=== PATIENT | male | born 1960 | race Two or more races ===

== ENCOUNTER 2022-08-14 16:23 | Inpatient (IN) | payer MEDICARE ==
[~2022-08-14] VITALS: Ht 172.7 cm; Wt 62.1 kg
[2022-08-14] MEDS ORDERED: RISP1TAB7 PO (23:24)
[2022-08-14] MEDS ORDERED: ACETAMINOPHEN 325 MG TABLET PO PRN (23:30)
[2022-08-14] MEDS ORDERED: MAG HYDROX/AL HYDROX/SIMETH 30 ML UDC PO PRN (23:30)
[2022-08-14] MEDS ORDERED: MAGNESIUM HYDROXIDE 30 ML UDC PO PRN (23:30)
[2022-08-15] MEDS ORDERED: BLOOD SUGAR DIAGNOSTIC 1 EACH STRIP IN ONE
[2022-08-15 00:50] VITALS: BP 110/63
--- NOTE | 2022-08-15 01:21 | NUR ---
RN NOTES : ADMISSION NOTES: ADMITTED THIS 71Y/O MALE PATIENT DIRECT ADMIT FROM [facility] . ADMITTED TO 5250 HOLD PER HOLD DTS, GD , PT. DISORGNIZED,PARNOID,INCOHERENT DELUSIONAL, UPON FACE TO FACE ASSESSMENT PATIENT IS A&O2 ,EASILY AGITATED ,DISORGNIZED, DISHELVED,POOR HYGINE,MALORDURS UNCOOPERTIVE,POOR DECISION MAKING,DENIES SI /HI AT THIS TIME, PT. IS POOR HISTORIAN, POOR INSIGHT ,POOR JUDGEMENT , BOTH MD AWARE AND NOTIFIED OF THE ADMISSION, BELONGINGS CONTRABAND WERE DONE , PT. REFUSED SIGNS ADMISSION CONSENT PAPER DUE TO TIRED, DISORGNIZED, PT. RIGHTS DISCUSS BY INTERPRETATIVE DANCER , PROVIDE THE PT. WITH HANDBOOK, AND MEDICATIONS GUIDE, ENVIRONMENTAL SAFETY CHECK DONE, ENCOURAGED PT. VERBALIZED ANY FEELING CONCERN TO STAFF, ORIENT TO UNIT POLICY, NO ACUTE DISTRESS NOTED,VITAL SIGNS WNL ,DENIES ANY PAIN AT THIS TIME,WILL CONTINUE TO MONITOR FOR Q15 SAFETY AND BEHAVIOR.
--- NOTE | 2022-08-15 06:30 | NUR ---
RN NOTES: CALLED NOTIFED DAVID MARIE # [phone], REGARDING ABOUT PT. ADMITTED TO [facility] PER PT. CAREGIVER DAVID MARIE PT. HAS HYPERTENSION , DM , PER PT. CAREGIVER WHEN HE FIND HIS LIST OF MEDS HE WILL CALL BACK AND PROVIDE LIST OF MEDICATION ENDORSE TO ON COMING NURSE .WILL CONTINUTY WITH CARE.
[2022-08-15 07:06] LABS: BASOPHILS % (AUTO) 0.7 % (0.0-2.0); EOSINOPHILS % (AUTO) 0.6 % (0.0-6.0); HEMATOCRIT 29 % (39-51); HEMOGLOBIN 9.5 g/dL (13.5-17.5); LYMPHOCYTES # (AUTO) 2.2 K/uL (0.8-4.8); LYMPHOCYTES % (AUTO) 35.4 % (20.0-44.0); MEAN CORPUSCULAR HGB CONC 33 g/dl (31.0-36.0); MEAN CORPUSCULAR VOLUME 94 fL (80-96); MONOCYTES # (AUTO) 0.5 K/uL (0.1-1.30); NEUTROPHILS # (AUTO) 3.4 K/uL (1.8-8.9); NEUTROPHILS % (AUTO) 55.3 % (43.0-81.0); PLATELET COUNT (AUTO) 320 K/uL (150-450); RED BLOOD CELL COUNT(AUTO) 3.09 MIL/uL (4.5-6.0); WHITE BLOOD COUNT (AUTO) 6.2 K/uL (4.3-11.0)
[2022-08-15 07:32] LABS: CALCIUM, SERUM 8.6 mg/dL (8.5-10.1); CREATININE 0.7 mg/dL (0.6-1.3); POTASSIUM 4.4 mmol/L (3.5-5.1)
[2022-08-15 08:00] VITALS: BP 110/67
[2022-08-15] MEDS: NICOTINE PATCH (21MG) 21 MG PATCH.TD24 TD SCH (08:47)
[2022-08-15 16:00] VITALS: BP 112/68
[2022-08-15] MEDS: risperiDONE 1 MG TABLET PO SCH (16:28)
--- NOTE | 2022-08-15 19:30 | NUR ---
GPS RN NOTE, RECEIVED PATIENT AWAKE AND IN BED, NO S/S OR COMPLAINTS OF PAIN AT THIS TIME. PATIENT IS DISPLAYING NO S/S OF APPARENT DISTRESS AT THIS TIME. PATIENT BREATHING IS UNLABORED WITH EQUAL RISE AND FALL OF THE CHEST. PATIENT IS ALERT AND ORIENTED X 3 ON ROOM AIR WITH A SPO2 97%. PATIENT IS COMPLIANT WITH MEDICATIONS, ANXIOUS, PARANOID, FOCUSED ON DISCHARGE, HYPERVERBAL, AND COOPERATIVE. PATIENT DENIES SUICIDAL AND HOMICIDAL IDEATIONS AT THIS TIME. PATIENT ASSISTED WITH TURNING AND REPOSITIONING Q2HR AND PRN FOR COMFORT AND CIRCULATION. PATIENT HAS NO NEEDS AT THIS TIME. PATIENT EDUCATED ON THE USE OF THE CALL PARHAM. PATIENT BED SIDE RAILS UP X 2 FOR SAFETY. PATIENT BED IS LOCKED AND LOW. WILL CONTINUE TO MONITOR THIS PATIENT Q15 MINUTES WITH THE HELP OF STAFF TO MAINTAIN SAFETY.
[2022-08-15 20:55] VITALS: BP 120/64
[2022-08-16 08:00] VITALS: BP 97/63
[2022-08-16] MEDS: risperiDONE 1 MG TABLET PO SCH ×2 (08:01→16:55)
[2022-08-16] MEDS: LORAZEPAM 1 MG TABLET PO PRN (08:01)
[2022-08-16] MEDS: NICOTINE PATCH (21MG) 21 MG PATCH.TD24 TD SCH (09:00)
[2022-08-16 16:00] VITALS: BP 125/72
[2022-08-16 20:51] VITALS: BP 110/65
[2022-08-16] MEDS: ZOLPIDEM TARTRATE 5 MG TABLET PO PRN (23:42)
--- NOTE | 2022-08-16 23:43 | NUR ---
Pt awake and roaming hallways. Unable to sleep. Pt c/o insomnia. Least restrictive measures ineffective. Ambien 5mg 1 tab po prn given as ordered. Will continue to monitor.
--- NOTE | 2022-08-17 01:02 | NUR ---
Post 1 hr Ambien effective. Pt asleep in bed easy to arouse. Bed at low position and bed alarm on. Frequent visual check done for safety. Will continue to monitor. Will endorse to next shift.
[2022-08-17 08:00] VITALS: BP 116/61
[2022-08-17] MEDS: risperiDONE 1 MG TABLET PO SCH ×2 (08:24→16:15)
[2022-08-17] MEDS: NICOTINE PATCH (21MG) 21 MG PATCH.TD24 TD SCH (08:24)
--- NOTE | 2022-08-17 09:15 | NUR ---
KAIDEN Initial Discharge Note: Pt was residing at home located at [address] [place], [place] [address]. Pt's friend Maldonado ([phone]) contacted to gather collateral. He shared that pt stopped taking his medications since July 2018 since passing of his father. He shared that pt is in the process of temporarily conservatorship and that the next hearing will be in September 2022. KAIDEN contacted public guardian office ([phone]) and spoke with Vivienne who stated that pt's case is under investigation by Josselin ([phone]) and left a detailed voicemail. KAIDEN will work with the MD and pt to help coordinate appropriate discharge. Addendum: 08/17/22 at 0920 by KAIDEN TORRES Correction: Josselin number ([phone])
--- NOTE | 2022-08-17 09:18 | NUR ---
KAIDEN Clinical Note: Pt placed on a 5250 hold for danger to himself and GD. Per hold, pt has been paranoid and delusional. Pt was residing at home located at [address] [place], [place] [id number]. Pt's friend Maldonado ([phone]) contacted to gather collateral. He shared that pt stopped taking his medications since July 2018 since passing of his father. He shared that pt is in the process of temporarily conservatorship and that the next hearing will be in September 2022. KAIDEN contacted public guardian office ([phone]) and spoke with Vivienne who stated that pt's case is under investigation by Josselin ([phone]) and left a detailed voicemail. Addendum: 08/17/22 at 0920 by KAIDEN TORRES Correction: Josselin number ([phone])
--- NOTE | 2022-08-17 09:19 | NUR ---
SW Family Contact: Pt's friend Maldonado ([phone]) contacted to gather collateral. He shared that pt stopped taking his medications since July 2018 since passing of his father. He shared that pt is in the process of temporarily conservatorship and that the next hearing will be in September 2022.
--- NOTE | 2022-08-17 09:23 | NUR ---
Treatment Plan: Pt refused to sign treatment plan and appeared very confused.
--- NOTE | 2022-08-17 09:26 | NUR ---
SW Contact: KAIDEN contacted Soraya ([phone]) who is pt's manager of case management and left a voicemail.
--- NOTE | 2022-08-17 12:36 | NUR ---
Estate Conservatorship: KAIDEN received a call from Saturnino Garcia children's service worker for pt at [employer] ([phone]) (C:[phone]) who stated that Benito is the conservator of Estate but he manages the case. He reported that pt had a partner of 35 years and he four years ago. His partner was helping pt to manage his medications and ever since his pt has been off medications. Saturnino stated that pt's house went on sold and that they are pt's trustee who also help him with special needs. Saturnino reported that pt has been arrested due to entering into neighbors home trying to burn down buildings. He stated that the mental health department recommended LPS conservatorship but they recommended public guardian. Next hearing will be September [address]. Saturnino faxed legal documents of estate conservatorship. KAIDEN placed it in the chart.
--- NOTE | 2022-08-17 13:25 | NUR ---
Social Work Note/Substance Abuse Intervention: Patient was provided with a brief substance abuse intervention and referred to [facility] ([phone]), [facility] ([phone]), and [facility] ([phone]) for smoking cigarettes.
[2022-08-17 16:00] VITALS: BP 105/65
[2022-08-17] MEDS: ZOLPIDEM TARTRATE 5 MG TABLET PO PRN (21:34)
--- NOTE | 2022-08-18 07:30 | NUR ---
WOUND CARE CONSULT: PT RESTING AT THIS TIME. REVIEWED CHART, NURSING DOCUMENTATION AND PHOTOS WHICH INDICATE LEFT PLANTAR FOOT WOUND, PRESENT ON ADMISSION. DPM CONSULT REQUESTED THIS AM FROM DR DRAKE. IN AGREEMENT WITH PLAN OF CARE.
[2022-08-18 08:00] VITALS: BP 126/74
[2022-08-18] MEDS: NICOTINE PATCH (21MG) 21 MG PATCH.TD24 TD SCH ×2 (08:41→09:00)
[2022-08-18] MEDS: risperiDONE 1 MG TABLET PO SCH ×3 (08:41→16:22)
--- NOTE | 2022-08-18 09:39 | NUR ---
Estate Conservatorship: KAIDEN spoke with Saturnino Garcia flow worker for pt at [email or web address] ([phone]) (C:[phone]) and discussed that pt will need a nursing facility and he was agreeable of this. SW will find pt a locked or secured facility. He was agreeable of this.
--- NOTE | 2022-08-18 09:48 | NUR ---
Public Guardian Office: KAIDEN received a call from Josselin number ([phone]) who stated that they are investigating to see if pt qualifies for LPS. Josselin was insisting on pt to go to a nursing facility such as a locked unit. KAIDEN stated that this auto service writer has been in contact with pt's temporarily conservator of estate office and has been in discussion about pt's treatment plan/dc plan. KAIDEN stated this auto service writer has been in contact with rn field case manager Saturnino of [facility] and they are agreeable of pt being placed at a secured/locked facility. Josselin recommended for LPS conservatorship. KAIDEN explained the protocol of the hospital LPS conservatorship. KAIDEN discussed this with Yvonne Tejada and Dr. Corral. Josselin sounded demanding and KAIDEN continously explained that this auto service writer is in contact with the temporary conservator.
--- NOTE | 2022-08-18 10:18 | NUR ---
Court Notification: KAIDEN contacted Saturnino Garcia cotton farmworker for pt at [employer] ([phone]) and left a voicemail of pt's 2092 hearing.
--- NOTE | 2022-08-18 10:18 | NUR ---
Court Hearing: Patient's court hearing for 9650 was today and it was upheld for GD.
[2022-08-18 16:00] VITALS: BP 126/74
--- NOTE | 2022-08-18 17:36 | NUR ---
RN-NOTES PATIENT IS VISIBLE IN THE UNIT A/O X2 GUARDED, FOCUS ON THE DISCHARGE DATE. SELECTIVE WITH MEDICATIONS TODAY. NEEDS DIRECTIONS AND INSTRUCTION. PATIENT AMBULATORY WITH STEADY GAIT. ALL NEEDS ATTENDED AND ANTICIPATED. WILL CONT. MONITORING FOR SAFETY AND BEHAVIOR. WILL ENDORSE TO INCOMING NURSE FOR THE CONTINUITY OF CARE.
[2022-08-18 19:56] VITALS: BP 112/58
[2022-08-19 08:00] VITALS: BP 125/69
--- NOTE | 2022-08-19 08:39 | NUR ---
[employer] Conservatorship: KAIDEN spoke with Saturnino Garcia gospel worker for pt at [employer] ([phone]) (C:[phone]) that [facility] [employer]. He stated that they are not picky with facilities and any facility that the doctor recommends for pt.
--- NOTE | 2022-08-19 08:41 | NUR ---
KAIDEN Facility Referral: KAIDEN sent clinicals to [facility] ([phone]) to Jossy parekh for locked section of the facility. SW sent H & P, progress notes, and medication list.
[2022-08-19] MEDS: NICOTINE PATCH (21MG) 21 MG PATCH.TD24 TD SCH (09:00)
[2022-08-19] MEDS: risperiDONE 1 MG TABLET PO SCH ×2 (09:02→16:56)
--- NOTE | 2022-08-19 09:19 | NUR ---
Vacation Guide Contact: SW received a call from pt's production manager Linda ([phone]) who would want to visit pt during visiting hours. SW gave her visiting hours.
--- NOTE | 2022-08-19 11:15 | NUR ---
SW Facility Contact: SW spoke with [facility] ([phone]) to Jossy parekh who stated pt is not accepted due to not having a smoking area for pt.
--- NOTE | 2022-08-19 11:16 | NUR ---
KAIDEN SNF REFERRAL: KAIDEN sent clinicals to Cheryl from [facility] ([phone]) for placement. KAIDEN sent H & P, progress notes, and medication list.
[2022-08-19 16:00] VITALS: BP 117/59
[2022-08-19 20:36] VITALS: BP 109/64
[2022-08-19] MEDS: ZOLPIDEM TARTRATE 5 MG TABLET PO PRN (21:44)
--- NOTE | 2022-08-19 23:00 | NUR ---
Post 1 hr Ambien effective. Pt asleep in bed easy to arouse. Bed at low position and bed alarm on. Pt friendly with staff during shift and compliant with medications and care without adverse reaction. Frequent visual check done for safety. Will continue to monitor. Will endorse to next shift.
[2022-08-20 08:00] VITALS: BP 110/72
[2022-08-20] MEDS: risperiDONE 1 MG TABLET PO SCH ×2 (09:00→16:25)
[2022-08-20] MEDS: NICOTINE PATCH (21MG) 21 MG PATCH.TD24 TD SCH (09:00)
--- NOTE | 2022-08-20 09:05 | NUR ---
KAIDEN SNF CONTACT: KAIDEN received a call from Cheryl from [facility] ([phone]) who stated that they cannot accept pt.
--- NOTE | 2022-08-20 09:06 | NUR ---
KAIDEN SNF REFERRAL: KAIDEN sent clinicals to [facility] to Janet parekh ([phone]) for placement. SW sent H & P, progress notes, and medication list.
[2022-08-20] MEDS ORDERED: OLANZAPINE 10 MG VIAL IM ONE (09:30)
--- NOTE | 2022-08-20 09:38 | NUR ---
RN-NOTES PATIENT REFUSED ZYPREXA 2MG P.O,EXPLAINED RISK AND BENEFITS BUT PATIENT GETS AGITATED,ARGUMENTATIVE WITH THE CELL PHONE REPAIR TECHNICIAN. DR. YBARRA ( PSYCHIATRIST) IN THE UNIT AND DID TALK TO THE PATIENT BUT PATIENT GETS ANGRY AND AGITATED.PSYCHIATRIST ORDERED ZYPREXA 5MG IM ONCE. IM MED.GIVEN AT THE LEFT BUTTOCK, TOLERATED WELL. WILL CONT. MONITORING FOR SAFETY AND BEHAVIOR.
--- NOTE | 2022-08-20 13:45 | NUR ---
KAIDEN SNF CONTACT: KAIDEN spoke with [facility] to Janet parekh ([phone]) who stated pt is accepted.
--- NOTE | 2022-08-20 14:10 | NUR ---
RN Notes: Assumed Care: Pt. is in the room, suspicious and guarded upon approached. Will continue to monitor.
[2022-08-20 16:00] VITALS: BP 117/73
--- NOTE | 2022-08-20 19:30 | NUR ---
GPS RN NOTE, RECEIVED PATIENT AWAKE AND IN BED, NO S/S OR COMPLAINTS OF PAIN AT THIS TIME. PATIENT IS DISPLAYING NO S/S OF APPARENT DISTRESS AT THIS TIME. PATIENT BREATHING IS UNLABORED WITH EQUAL RISE AND FALL OF THE CHEST. PATIENT IS ALERT AND ORIENTED X 3 ON ROOM AIR WITH A SPO2 99%. PATIENT IS COMPLIANT WITH MEDICATIONS, ANXIOUS, PARANOID, FOCUSED ON DISCHARGE, HYPERVERBAL, AND COOPERATIVE. PATIENT DENIES SUICIDAL AND HOMICIDAL IDEATIONS AT THIS TIME. PATIENT ASSISTED WITH TURNING AND REPOSITIONING Q2HR AND PRN FOR COMFORT AND CIRCULATION. PATIENT HAS NO NEEDS AT THIS TIME. PATIENT EDUCATED ON THE USE OF THE CALL PARHAM. PATIENT BED SIDE RAILS UP X 2 FOR SAFETY. PATIENT BED IS LOCKED AND LOW. WILL CONTINUE TO MONITOR THIS PATIENT Q15 MINUTES WITH THE HELP OF STAFF TO MAINTAIN SAFETY.
[2022-08-20 20:05] VITALS: BP 112/77
[2022-08-21 08:00] VITALS: BP 115/63
[2022-08-21] MEDS: risperiDONE 1 MG TABLET PO SCH ×2 (08:19→16:12)
[2022-08-21] MEDS: NICOTINE PATCH (21MG) 21 MG PATCH.TD24 TD SCH (08:22)
--- NOTE | 2022-08-21 09:35 | NUR ---
RN Notes: Received pt. asleep in bed, breathing is even and unlabored. Ate 100% for breakfast and compliant po med and refused for Nicotine patch. Pt. is suspicious, guarded upon approached and mumbles to slef. Encouraged to verbalize feelings and motivated to attend group activity. Needs attended and will continue to monitor for safety.
[2022-08-21 16:00] VITALS: BP 118/68
[2022-08-21 20:00] VITALS: BP 116/52
[2022-08-22 08:00] VITALS: BP 117/76
[2022-08-22] MEDS: risperiDONE 1 MG TABLET PO SCH ×2 (08:02→16:17)
[2022-08-22] MEDS: NICOTINE PATCH (21MG) 21 MG PATCH.TD24 TD SCH (08:02)
[2022-08-22 16:00] VITALS: BP 120/66
--- NOTE | 2022-08-22 19:30 | NUR ---
GPS RN NOTE, RECEIVED PATIENT AWAKE AND IN BED, NO S/S OR COMPLAINTS OF PAIN AT THIS TIME. PATIENT IS DISPLAYING NO S/S OF APPARENT DISTRESS AT THIS TIME. PATIENT BREATHING IS UNLABORED WITH EQUAL RISE AND FALL OF THE CHEST. PATIENT IS ALERT AND ORIENTED X 3 ON ROOM AIR WITH A SPO2 98%. PATIENT IS COMPLIANT WITH MEDICATIONS, ANXIOUS, PARANOID, FOCUSED ON DISCHARGE, RESPONDING TO INTERNAL STIMULI, HYPERVERBAL, AND COOPERATIVE. PATIENT DENIES SUICIDAL AND HOMICIDAL IDEATIONS AT THIS TIME. PATIENT ASSISTED WITH TURNING AND REPOSITIONING Q2HR AND PRN FOR COMFORT AND CIRCULATION. PATIENT HAS NO NEEDS AT THIS TIME. PATIENT EDUCATED ON THE USE OF THE CALL PARHAM. PATIENT BED SIDE RAILS UP X 2 FOR SAFETY. PATIENT BED IS LOCKED AND LOW. WILL CONTINUE TO MONITOR THIS PATIENT Q15 MINUTES WITH THE HELP OF STAFF TO MAINTAIN SAFETY.
[2022-08-22 20:28] VITALS: BP 106/61
[2022-08-23 08:00] VITALS: BP 109/62
[2022-08-23] MEDS: risperiDONE 1 MG TABLET PO SCH ×3 (08:26→16:03)
[2022-08-23] MEDS: NICOTINE PATCH (21MG) 21 MG PATCH.TD24 TD SCH (08:31)
[2022-08-23 16:00] VITALS: BP 119/76
[2022-08-23 21:18] VITALS: BP 120/70
[2022-08-24 08:00] VITALS: BP 137/77
[2022-08-24] MEDS: NICOTINE PATCH (21MG) 21 MG PATCH.TD24 TD SCH (08:47)
[2022-08-24] MEDS: risperiDONE 1 MG TABLET PO SCH ×4 (08:47→16:36)
[2022-08-24 16:00] VITALS: BP 114/75
--- NOTE | 2022-08-25 07:32 | NUR ---
GPS RN OPENING NOTE RECEIVED PT ASLEEP IN BED, EASILY AROUSED. PT IS A/O X2, REORIENTED PT NEEDED. PT IS ON ROOM AIR, TOLERATING WELL. NO SOB NOTED. NOT IN ANY SIGN OF RESPIRATORY DISTRESS. SAFETY MEASURES IN PLACE: BED IN LOWEST AND LOCKED POSITION, SIDE RAILS UPX2, BED ALARM ON, AND CALL LIGHT WITHIN REACH. WILL CONTINUE TO MONITOR THIS PATIENT Q15 MINUTES WITH THE HELP OF STAFF TO MAINTAIN SAFETY.
[2022-08-25 08:00] VITALS: BP 108/65
[2022-08-25] MEDS: NICOTINE PATCH (21MG) 21 MG PATCH.TD24 TD SCH ×2 (08:40→08:54)
[2022-08-25] MEDS: risperiDONE 1 MG TABLET PO SCH ×5 (08:40→16:28)
--- NOTE | 2022-08-25 08:50 | NUR ---
GPS RN NOTE PT REFUSED ALL HIS MEDICATIONS SCHEDULED AT 0900. EXPLAINED RISK AND BENEFITS, STILL REFUSED. PT WAS VERY AGITATED, PT STATED, "I DON'T NEED THOSE MEDICATIONS"!. "I'M NOT PSYCH"!.
--- NOTE | 2022-08-25 10:27 | NUR ---
[facility]: SW received a call from Saturnino Garcia make up worker for pt at [employer] ([phone]) (C:[phone]) who stated that they will be visiting pt tdoay at 11AM, 08/25/2022.
--- NOTE | 2022-08-25 12:47 | NUR ---
Estate Conservatorship Visit: Saturnino Garcia custodial worker and Siria from pt's law office [employer] ([phone]) (C:[phone]) came to visit pt today. They had a conservation about pt's current house that has been on sold and his placement. They were encouraging pt to take medication. Assessing about his current situation, his friends, and the usp he will be going to, [facility].
[2022-08-25 16:00] VITALS: BP 132/60
--- NOTE | 2022-08-25 16:27 | NUR ---
GPS RN NOTE PT REFUSED HIS RISPERDAL MEDICATION SCHEDULED AT 1700. EXPLAINED RISK AND BENEFITS, PT STILL REFUSED. PT STATED, "I WILL NOT TAKE THAT MEDICATION!".
[2022-08-25 19:41] VITALS: BP 115/71
[2022-08-26 08:00] VITALS: BP 117/72
[2022-08-26] MEDS: NICOTINE PATCH (21MG) 21 MG PATCH.TD24 TD SCH ×2 (09:00→09:07)
[2022-08-26] MEDS: risperiDONE 1 MG TABLET PO SCH ×4 (09:00→16:29)
--- NOTE | 2022-08-26 09:25 | NUR ---
RN NOTES: REFUSED AM MEDS, STATES HE IS "NOT SUSAN HE IS JULIA". VERIFIED WITH 2 STAFF PT'S NAME, RETURNED MEDICATION TO [facility] PER HOSP PROTOCOL.
[2022-08-26] MEDS ORDERED: PALIPERIDONE PALMITATE 234 MG/1.5 ML SYRINGE IM ONE (11:30)
--- NOTE | 2022-08-26 12:21 | NUR ---
RN NOTES: PT REFUSED 1300 MEDICATION, EDUCATED ON PURPOSE, PT STILL REFUSED PT REFUSED TO SIGN NEW MEDICATION ORDER, PT STATES " I AM NOT SIGNING NOTHING!" PER MD MANUEL, RN AND CHARGE NURSE CAN WITNESS CONSENT FORM FAXED TO PHARMACY, PENDING VERIFICATION
--- NOTE | 2022-08-26 12:30 | NUR ---
RN NOTES: PT REFUSED [employer], RN AND STAFF ATTEMPTED MULTIPLE TIMES TO EXPLAIN THE RATIONALE FOR MEDICATION, PT CONTINUALLY REFUSED, MADE MD AWARE. PER MD WILL TRY TOMORROW. INVEGA PLACED IN THE PT'S CASSETTE FOR NOW, RESEARCH LIBRARIAN AWARE.
[2022-08-26 16:00] VITALS: BP 114/62
--- NOTE | 2022-08-26 16:30 | NUR ---
RN NOTES: PT REFUSED 1700- MEDS, PT STATES " NO, I DON'T NEED IT, GET OUT OF HERE!" RN EDUCATION PT ON PURPOSE OF MEDICATION, PT STILL REFUSED, RETURNED MED PER HOSP PROTOCOL.
--- NOTE | 2022-08-26 19:37 | NUR ---
RN NOTES: RECEIVED PATIENT AWAKE, AMBULATORY, NO COMPLAIN OF PAIN AND DISCOMFORT WAS OBSERVED, PATIENT WAS AMBULATORY ABLE TO EXPRESS NEEDS, NONE COMBATIVE, NO BEHAVIORAL CHANGES WAS OBSERVED, WILL CONTINUE TO MONITOR.
[2022-08-26 20:00] VITALS: BP 101/74
[2022-08-27 08:00] VITALS: BP 119/60
[2022-08-27] MEDS: NICOTINE PATCH (21MG) 21 MG PATCH.TD24 TD SCH (09:00)
[2022-08-27] MEDS: risperiDONE 1 MG TABLET PO SCH ×3 (09:00→17:00)
--- NOTE | 2022-08-27 09:55 | NUR ---
Dr. Corral spoke to the pt. and became highly agitated, aggressive, throwing things in the floor, verbally abusive and with angry mood. Dr. Corral ordered Benadryl 25 mg IM and Haldol 5 mg IM.
[2022-08-27] MEDS ORDERED: diphenhydrAMINE HCL 50 MG/ML VIAL IM ONE (10:00)
[2022-08-27] MEDS ORDERED: HALOPERIDOL LACTATE INJ 5 MG/ML VIAL IM ONE (10:00)
[2022-08-27 16:00] VITALS: BP 136/69
[2022-08-27 20:00] VITALS: BP 105/63
--- NOTE | 2022-08-27 20:16 | NUR ---
RN NOTES: PATIENT RESTING HIS ROOM . IN NO APPARENT DISTRESS NOTED. PATIENT REMAINS CONFUSED, DISORGANIZED, ANXIOUS, PARANOID ,FORGETFUL , EASILY AGITATED TALKING TO SELF , NEEDS FREQUENTLY REDIRECTIONS SAFETY PRECAUTIONS MAINTAINED. WILL CONTINUE TO MONITOR Q15MIN ROUNDS FOR SAFETY AND BEHAVIOR.
[2022-08-28 08:00] VITALS: BP 96/54
[2022-08-28] MEDS: NICOTINE PATCH (21MG) 21 MG PATCH.TD24 TD SCH (09:00)
[2022-08-28] MEDS: risperiDONE 1 MG TABLET PO SCH ×3 (09:06→17:00)
[2022-08-28] MEDS ORDERED: PALIPERIDONE PALMITATE 234 MG/1.5 ML SYRINGE IM ONE (09:30)
[2022-08-28 20:00] VITALS: BP 100/60
[2022-08-29] MEDS: LORAZEPAM 1 MG TABLET PO PRN (01:11)
--- NOTE | 2022-08-29 01:23 | NUR ---
RN NOTES: ANXIETY PT. C/O FEELING ANXIOUS RESTLESS, PARANOID,PACING IN HALLWAY , PRN ATIVAN 1 MG PO GIVEN PER PT. REQUEST, WILL CONTINUE TO MONITOR.
[2022-08-29 08:00] VITALS: BP 106/64
[2022-08-29] MEDS: NICOTINE PATCH (21MG) 21 MG PATCH.TD24 TD SCH (08:00)
[2022-08-29] MEDS: risperiDONE 1 MG TABLET PO SCH ×3 (08:42→16:19)
[2022-08-29 16:00] VITALS: BP 107/64
[2022-08-29 21:05] VITALS: BP 100/59
[2022-08-30 08:00] VITALS: BP 114/68
[2022-08-30] MEDS: NICOTINE PATCH (21MG) 21 MG PATCH.TD24 TD SCH (08:33)
[2022-08-30] MEDS: risperiDONE 1 MG TABLET PO SCH ×3 (08:34→16:55)
[2022-08-30 16:00] VITALS: BP 115/68
[2022-08-30 20:00] VITALS: BP 106/57
--- NOTE | 2022-08-31 04:54 | NUR ---
RN CLOSING NOTES: ALERT NO TALKING POOR EYE CONTACT WALKS IN THE HALLWAY AND IS MUTE WILL STOP AND LEAN AGAINS WALK AWHILE AND THEN RETURN TO HIS ROOM NO PRN MEDICATION THIS 1 2HOURST THE WALL AND WATCH OTHER PATIENTS AND THE NURSES HE WILL HAVE THE BLUE BLANKET OVER HIS HEAD LIKE A HOODIE AND THE BLANKET OVER HIS SHOULDERS
[2022-08-31 08:00] VITALS: BP 116/71
[2022-08-31] MEDS: NICOTINE PATCH (21MG) 21 MG PATCH.TD24 TD SCH (09:00)
[2022-08-31] MEDS: risperiDONE 1 MG TABLET PO SCH ×3 (09:48→17:08)
[2022-08-31 16:00] VITALS: BP 134/77
[2022-08-31 21:20] VITALS: BP 103/65
--- NOTE | 2022-09-01 07:45 | NUR ---
RN NOTE- PT VISIBLE ON UNIT, ALERT ORIENTED DIRECTABLE ,MED COMPLIANT, NO BEHAVIORAL ISSUES, FOR DC TODAY
[2022-09-01 08:00] VITALS: BP 121/71
--- NOTE | 2022-09-01 08:15 | NUR ---
SW Discharge Note: Patient will be discharged to [facility] [place] [address] [place] [address]; ([phone]) via ambulance. Janet iglesia ([phone]) from [facility] accepted pt and is welcoming pt today. Patients temp conservator Adama and Saturnino Garcia aquacultural worker supervisor for pt at [employer] ([phone]) (C:[phone]) are aware and agreeable of discharge. Pt appears to be alert and oriented x2 and is willing to go to the nursing facility. Pt denies visual/auditory hallucinations. Pt denies denies suicidal or homicidal ideation. Patient will follow up with Dr[place] Cor[place] [address] [address]; ([phone]) and (Pier Worker) Dr. oM [address] [facility] [address], [place] [address]; ([phone]). Patient signed the homeless waiver upon discharge and a copy was placed in the chart. Homeless resources were provided and include 211 information line for shelters and homeless resources. A copy of all resources given to patient was also placed in the chart. Pt presented with euthymic mood and congruent affect.
[2022-09-01] MEDS: NICOTINE PATCH (21MG) 21 MG PATCH.TD24 TD SCH (08:19)
[2022-09-01] MEDS: risperiDONE 1 MG TABLET PO SCH ×2 (08:19→12:47)
--- NOTE | 2022-09-01 13:40 | NUR ---
RN DC NOTE- PT DISCHARGED TO [facility] AT THIS TIME. MEDICALLY CLEARED FOR DC. SKIN INTACT, VS STABLE, DC HOLD. DENIES SI HI VH. AFTERCARE AND ORDERS REVIEWED [facility] STAFF AND REPORT GIVEN. ID [id number] REMOVED, POSSESSIONS RETURNED, ESCORTED OFF UNIT BY STAFF.
== END 2022-09-01 13:30 | DRG 885 ==
LOC: GPS 22:55
PROVIDERS: ADMIT Psychiatry & Neurology Psychiatry
DX: F20.0 Paranoid schizophrenia (principal); F29 Unspecified psychosis not due to a substance or known physiological condition; E86.0 Dehydration; Z73.6 Limitation of activities due to disability; Z79.899 Other long term (current) drug therapy; R79.89 Other specified abnormal findings of blood chemistry; D63.8 Anemia in other chronic diseases classified elsewhere; S91.312A Laceration without foreign body, left foot, initial encounter; S91.311A Laceration without foreign body, right foot, initial encounter; X58.XXXA Exposure to other specified factors, initial encounter; Y92.9 Unspecified place or not applicable
CPT/HCPCS: 36415; 80048-TC; 80061-TC; 82962-TC; 84443-TC; 85025-TC; 87081-TC; 97112-TC; 97116-TC; 97530-TC; J1200; J1630; J2426; J3490